=== PATIENT | male | born 1980 | race Two or more races ===

== ENCOUNTER 2020-10-17 17:39 | Emergency (ER) | payer OTHER ==
[~2020-10-17] VITALS: Ht 185.4 cm; Wt 99.8 kg
[2020-10-17] MEDS ORDERED: FISH OIL 500 M1 EAC1 PO (17:54)
[2020-10-17] MEDS ORDERED: LISINOPRIL10 MG PO (17:54)
[2020-10-17] MEDS ORDERED: MULTI VITAMIN1 EACH PO (17:55)
[2020-10-17] MEDS ORDERED: FAMOTIDINE20 MG PO (17:55)
[2020-10-17] MEDS ORDERED: PRILOSEC OTC20 MG PO (19:09)
--- NOTE | 2020-10-18 17:34 | EKG ---
[facility] [address] [facility] [place], [place] [address] Signed Sinus tachycardia Otherwise normal ECG Confirmed by NATASHA RODRIGUEZ MD ([id number]) on 10/18/2020 5:34:32 PM Electronically Signed By: NATASHA RODRIGUEZ MD 10/18/20 1734 PATIENT NAME: CINDY OKEEFE DEBORAH Electrocardiogram DATE OF : 76 PHYSICIAN: NATASHA RODRIGUEZ MD REPORT #: [id number] REPORT IS CONFIDENTIAL AND NOT TO BE RELEASED WITHOUT AUTHORIZATION
== END 2020-10-17 19:32 | disposition home or self-care (01) ==
LOC: ED 17:39
DX: R07.89 Other chest pain (principal); Z88.5 Allergy status to narcotic agent; Z79.899 Other long term (current) drug therapy
CPT/HCPCS: 71045; 80053; 83690; 84484; 85025; 93005; 93010; 99285-25

== ENCOUNTER 2021-03-06 19:19 | Emergency (ER) | payer OTHER ==
[~2021-03-06] VITALS: Ht 182.9 cm; Wt 99.8 kg
[~2021-03-06 19:19] MED LIST: FAMOTIDINE20 MG PO; FISH OIL 500 M1 EAC1 PO; LISINOPRIL10 MG PO; MULTI VITAMIN1 EACH PO; PRILOSEC OTC20 MG PO
== END 2021-03-06 23:06 | disposition home or self-care (01) ==
LOC: ED 19:19
DX: S80.11XA Contusion of right lower leg, initial encounter (principal); X58.XXXA Exposure to other specified factors, initial encounter; K21.9 Gastro-esophageal reflux disease without esophagitis; Z88.5 Allergy status to narcotic agent; Z79.899 Other long term (current) drug therapy
CPT/HCPCS: 93971; 99283-25